=== PATIENT | female | born 1985 | race Caucasian/White ===

== ENCOUNTER 2021-11-07 11:05 | Outpatient (CLI) | payer BC, SELFPAY | END 2021-11-07 11:06 | disposition home or self-care (01) | LOC: LKVREF 11-10 10:57 | PROVIDERS: Visit Provider Nurse Practitioner Family | DX: R10.2 Pelvic and perineal pain (principal); R35.0 Frequency of micturition; N39.0 Urinary tract infection, site not specified | CPT/HCPCS: 87086 ==